=== PATIENT | male | born 1995 | race Caucasian/White ===

== ENCOUNTER 2019-06-24 11:26 | Emergency (ER) | payer OTHER ==
[~2019-06-24] VITALS: Ht 177.8 cm; Wt 81.6 kg
[2019-06-24 11:30] VITALS: BP_SYST 117; BP_SYST 120; BP_SYST 131; BP_DIAS 58; BP_DIAS 62; BP_DIAS 71
[2019-06-24 11:35] VITALS: BP 131/62
--- NOTE | 2019-06-24 11:35 | NUR ---
ED Nurse Note: PT BROUGHT IN BY [employer] AND PICKED UP FROM WORK DUE TO SZ X 1-2 MINS TONIC CLONIC AND WITNESSED BY CO WORKERS. NOTED MILD REDNESS ON TONGUE BUT NO ACTIVE BLEEDING UPON ARRIVAL. REPORTED PT BECAME ALTERED AND WAS SWEATING A LOT. NO HX OF SZ. PT CAME IN AAO X4, FOLLOWS COMMANDS WITH NON LABORED BREATHING. NOTED PT STILL SWEATING. SEIZURE PRECAUTIONS ARE IMPLEMENTED.
--- NOTE | 2019-06-24 11:40 | NUR ---
ED Nurse Note: COLLECTED BLOOD SPECIMEN THEN SENT TO LAB.
[2019-06-24] MEDS ORDERED: LORazepam Inj 2mg/ml 1ml IV ONE (11:45)
[2019-06-24] MEDS ORDERED: levETIRAcetam 500 MG in D5W 110 ML IV ONE (11:45)
[2019-06-24 12:04] LABS: BASOPHILS % (AUTO) 1.1 % (0.0-2.0); EOSINOPHILS % (AUTO) 0.8 % (0.0-3.0); HEMATOCRIT 43.5 % (42.0-52.0); HEMOGLOBIN 15.5 G/DL (14.2-18.0); LYMPHOCYTES % (AUTO) 33.2 % (20.0-45.0); MEAN CORPUSCULAR VOLUME 86 FL (80-99); MONOCYTES % (AUTO) 9.4 % (1.0-10.0); NEUTROPHILS % (AUTO) 55.4 % (45.0-75.0); PLATELET COUNT 260 K/UL (150-450); RED BLOOD COUNT 5.04 M/UL (4.70-6.10); RED CELL DISTRIBUTION WIDTH 10.7 % (11.6-14.8); WHITE BLOOD COUNT 8.9 K/UL (4.8-10.8)
[2019-06-24 12:12] LABS: ANION GAP 22 mmol/L (5-15); BLOOD UREA NITROGEN 15 mg/dL (7-18); CALCIUM 9.3 MG/DL (8.5-10.1); CARBON DIOXIDE 15 MMOL/L (21-32); CHLORIDE 102 MMOL/L (98-107); CREATININE 1.4 MG/DL (0.55-1.30); POTASSIUM 4.2 MMOL/L (3.5-5.1); SODIUM 139 MMOL/L (136-145)
--- NOTE | 2019-06-24 12:13 | NUR ---
ED Nurse Note: UNDERWEAR TRIMMER AT THE BED SIDE FOR CXR. PT TAKEN TO CT IN STABLE CONDITION.
[2019-06-24 12:26] LABS: ALANINE AMINOTRANSFERASE 35 U/L (12-78); ALBUMIN 4.4 G/DL (3.4-5.0); ALBUMIN/GLOBULIN RATIO 1.2 (1.0-2.7); ALKALINE PHOSPHATASE 83 U/L (46-116); ASPARTATE AMINO TRANSFERASE 23 U/L (15-37); BILIRUBIN,TOTAL 0.3 MG/DL (0.2-1.0); CKMB 1.4 NG/ML (0.0-3.6)
--- NOTE | 2019-06-24 12:31 | NUR ---
ED Nurse Note: PT CAME BACK FROM CT IN STABLE CONDITION.
--- NOTE | 2019-06-24 12:31 | NUR ---
ED Nurse Note: PARENTS AT THE BED SIDE.
[2019-06-24 12:40] LABS: APPEARANCE,URINE CLEAR; BILIRUBIN, URINE NEGATIVE (NEGATIVE); COLOR,URINE PALE YELLOW; GLUCOSE, URINE (UA) NEGATIVE (NEGATIVE); KETONES,URINE 1+ (NEGATIVE); LEUKOCYTE ESTERASE ,URINE NEGATIVE (NEGATIVE); NITRITE,URINE NEGATIVE (NEGATIVE); PH,URINE 7 (4.5-8.0); PROTEIN,URINE 2+ (NEGATIVE); UROBILINOGEN,URINE NORMAL MG/DL (0.0-1.0)
[2019-06-24 13:25] VITALS: BP 122/76
--- NOTE | 2019-06-24 14:35 | NUR ---
ED Nurse Note: DR ESPINO AT THE BED SIDE.
--- NOTE | 2019-06-24 14:56 | Emergency Room Report ---
History of Present Illness General Chief Complaint: Seizure Source: Patient, EMS Present Illness HPI Patient brought in by EMS for seizure which was witnessed. It was generalized tonic-clonic. The patient was at work. The last thing he remembers is that he was standing. The next he was waking up with paramedics and denying that there was any problem with that as seizure. He also denied tongue trauma however paramedics noted right tongue trauma. No bleeding. There was no head trauma. The patient is postictal and having difficulty answering questions. He denies pain at this time including his tongue. Patient had a syncopal episode a year and a half ago. This was evaluated [facility]. He reports that a CT scan was done at that time. Work-up was essentially negative. This happened at work also. See medical treatment for further history. Allergies: Coded Allergies: No Known Allergies (Unverified , 06/24/19) Patient History Limited by: medical condition Past Medical History: see triage record, psych hx - ADHD Social History: Reports: alcohol use, drug use - THC; Denies: smoking Social History Narrative production wood craftsman for condomin[employer] -lives with his brother Reviewed Nursing Documentation: PMH: Agreed; PSxH: Agreed Nursing Documentation-PMH Past Medical History: No History, Except For History Of Psychiatric Problem: Yes - depression Review of Systems All Other Systems: limited Physical Exam Vital Signs Date Time Temp Pulse Resp B/P (MAP) Pulse Ox O2 Delivery O2 Flow Rate FiO2 06/24/19 11:25 97.9 110 12 140/68 (92) 98 Room Air Sp02 EP Interpretation: reviewed, normal General Appearance: well appearing, no apparent distress, Postictal Head: normocephalic, atraumatic Eyes: bilateral eye normal inspection, bilateral eye PERRL, bilateral eye EOMI ENT: moist mucus membranes - Right lingual maceration Neck: full range of motion, supple, no bony tend Respiratory: chest non-tender, lungs clear, normal breath sounds Cardiovascular #1: regular rate, rhythm Cardiovascular #2: 2+ radial (R) Gastrointestinal: normal inspection, non tender, no mass, non-distended, decreased bowel sounds Musculoskeletal: back normal, normal range of motion Neurologic: alert, motor strength/tone normal, promotional demonstrator III-XII nml as tested, oriented - X2, sensory intact, cerebellar normal, speech normal, other - Postictal Psychiatric: mood/affect normal Skin: no rash, warm/dry Medical Decision Making Diagnostic Impression: Primary Impression: Epileptic seizure, generalized Additional Impression: Dehydration ER Course Patient presents post witnessed generalized tonic-clonic seizure. Differential includes new onset seizure, post syncopal seizure, dehydration, head trauma, electrolyte imbalance, arrhythmia amongst others. Evaluation with CT of the head, EKG, chest x-ray and labs. X-ray to exclude aspiration. Treatment with Ativan and a dose of Keppra. Patient placed on secured entrance monitor and seizure precautions undertaken. Orthostatics performed. Patient orthostatic by pulse. EKG without injury. Chest x-ray no infiltrates. CT the head normal. CMP remarkable for mildly elevated of creatinine. Tox screen positive for THC and amphetamines (patient is on prescribed Vyvanse). Patient now registers tongue pain. Tylenol administered. Patient admits to alcohol 3 times a week. He drank 1 mojito last night. He is on a decreased dose of Vyvanse at this time. 6 months ago Wellbutrin was changed to a different dose. Parents and brother present. Discussion of findings with family and patient. Discussed seizure precautions. Unable to determine if post syncopal seizure or new onset seizure activity. Regarding Wellbutrin, it would be rare to have seizures at the dose the patient is taking (150 mg twice daily). Discussed starting low-dose Keppra with patient and family. Discussed the need for alcohol abstinence at this time. Discussed the need for follow-up with neurologist. Patient improved with treatment. Patient stable for outpatient observation and treatment. DMV form completed. Laboratory Tests Test 06/24/19 11:32 06/24/19 12:10 White Blood Count 8.9 K/UL (4.8-10.8) Red Blood Count 5.04 M/UL (4.70-6.10) Hemoglobin 15.5 G/DL (14.2-18.0) Hematocrit 43.5 % (42.0-52.0) Mean Corpuscular Volume 86 FL (80-99) Mean Corpuscular Hemoglobin 30.8 PG (27.0-31.0) Mean Corpuscular Hemoglobin Concent 35.6 G/DL (32.0-36.0) Red Cell Distribution Width 10.7 % (11.6-14.8) L Platelet Count 260 K/UL (150-450) Mean Platelet Volume 7.3 FL (6.5-10.1) Neutrophils (%) (Auto) 55.4 % (45.0-75.0) Lymphocytes (%) (Auto) 33.2 % (20.0-45.0) Monocytes (%) (Auto) 9.4 % (1.0-10.0) Eosinophils (%) (Auto) 0.8 % (0.0-3.0) Basophils (%) (Auto) 1.1 % (0.0-2.0) Sodium Level 139 MMOL/L (136-145) Potassium Level 4.2 MMOL/L (3.5-5.1) Chloride Level 102 MMOL/L (98-107) Carbon Dioxide Level 15 MMOL/L (21-32) L Anion Gap 22 mmol/L (5-15) H Blood Urea Nitrogen 15 mg/dL (7-18) Creatinine 1.4 MG/DL (0.55-1.30) H Estimate Glomerular Filtration Rate > 60 mL/min (>60) Glucose Level 147 MG/DL (74-106) H Calcium Level 9.3 MG/DL (8.5-10.1) Total Bilirubin 0.3 MG/DL (0.2-1.0) Aspartate Amino Transferase (AST) 23 U/L (15-37) Alanine Aminotransferase (ALT) 35 U/L (12-78) Alkaline Phosphatase 83 U/L (46-116) Creatine Kinase MB 1.4 NG/ML (0.0-3.6) Troponin I 0.000 ng/mL (0.000-0.056) Total Protein 8.2 G/DL (6.4-8.2) Albumin 4.4 G/DL (3.4-5.0) Globulin 3.8 g/dL Albumin/Globulin Ratio 1.2 (1.0-2.7) Salicylates Level 3.1 ug/mL (2.8-20) Acetaminophen Level < 2 MCG/ML (10-30) L Serum Alcohol < 3 mg/dL Urine Color Pale yellow Urine Appearance Clear Urine pH 7 (4.5-8.0) Urine Specific [place] 1.015 (1.005-1.035) Urine Protein 2+ (NEGATIVE) H Urine Glucose (UA) Negative (NEGATIVE) Urine Ketones 1+ (NEGATIVE) H Urine Blood 2+ (NEGATIVE) H Urine Nitrite Negative (NEGATIVE) Urine Bilirubin Negative (NEGATIVE) Urine Urobilinogen Normal MG/DL (0.0-1.0) Urine Leukocyte Esterase Negative (NEGATIVE) Urine RBC 2-4 /HPF (0 - 0) H Urine WBC 2-4 /HPF (0 - 0) Urine Squamous Epithelial Cells Occasional /LPF Urine Bacteria Occasional /HPF (NONE) Urine Opiates Screen Negative (NEGATIVE) Urine Barbiturates Screen Negative (NEGATIVE) Phencyclidine (PCP) Screen Negative (NEGATIVE) Urine Amphetamines Screen Positive (NEGATIVE) H Urine Benzodiazepines Screen Negative (NEGATIVE) Urine Cocaine Screen Negative (NEGATIVE) Urine Marijuana (THC) Screen Positive (NEGATIVE) H EKG Diagnostic Results Rate: tachycardiac Rhythm Strip Diag. Results EP Interpretation: yes Rhythm: no PVC's, no ectopy, other - Sinus tachycardia Chest X-Ray Diagnostic Results Chest X-Ray Diagnostic Results : Chest X-Ray Ordered: Yes # of Views/Limited/Complete: 1 View Indication: Other EP Interpretation: Yes Interpretation: no consolidation, no effusion, no pneumothorax Impression: No acute disease Electronically Signed by: Electronically signed by Octaviano Bach MD CT/MRI/US Diagnostic Results CT/MRI/US Diagnostic Results : Imaging Test Ordered: CT head Impression No disease Last Vital Signs Date Time Temp Pulse Resp B/P (MAP) Pulse Ox O2 Delivery O2 Flow Rate FiO2 06/24/19 15:05 97.9 92 16 134/75 100 Room Air Status: improved Disposition: HOME, SELF-CARE Condition: Improved Scripts Levetiracetam (KEPPRA) 500 Mg Tablet 250 MG ORAL EVERY 12 HOURS, #60 TAB 0 Refills Prov: Octaviano Bach MD 06/24/19 Referrals: NOT CHOSEN IPA/,REFERRING (PCP) Octaviano Bach MD Jun 24, 2019 14:56
[2019-06-24] MEDS ORDERED: KEPPRA500 M4 ORAL (14:58)
[2019-06-24] MEDS ORDERED: WELLBUTRIN XL150 MG ORAL (15:02)
[2019-06-24] MEDS ORDERED: VYVANSE20 MG ORAL (15:02)
[2019-06-24 15:05] VITALS: BP 134/75
--- NOTE | 2019-06-24 15:05 | NUR ---
ER DISCHARGE NOTE: Patient is cleared to be discharged per ERMD, pt is aox4, on room air, with stable vital signs. pt was given dc and prescription instructions, pt was able to verbalize understanding, pt id band and iv site removed without complications. pt is able to ambulate with steady gait. pt took all belongings and left with his family.
--- NOTE | 2019-06-24 15:06 | Diagnostic Imaging Report ---
EXAM: XR Chest, 1 View CLINICAL HISTORY: Seizures TECHNIQUE: Frontal view of the chest. COMPARISON: No relevant prior studies available. FINDINGS: Lungs: Unremarkable. The lungs appear clear. No focal consolidation. Pleural space: Unremarkable. The costophrenic angles are sharp. No visible pneumothorax. Heart: Unremarkable. No cardiomegaly. Mediastinum: Unremarkable. Bones/joints: Unremarkable. IMPRESSION: No acute findings.
--- NOTE | 2019-06-24 15:06 | Diagnostic Imaging Report ---
EXAM: CT Head Without Intravenous Contrast CLINICAL HISTORY: Seizures TECHNIQUE: Axial computed tomography images of the head/brain without intravenous contrast. CTDI is 53.40 mGy and DLP is 1098.90 mGy-cm. One or more of the following dose reduction techniques were used: automated exposure control, adjustment of the mA and/or kV according to patient size, use of iterative reconstruction technique. Coronal reformatted images were created and reviewed. COMPARISON: No relevant prior studies available. FINDINGS: Brain: Unremarkable. No evidence of acute intracranial hemorrhage. No significant white matter disease. No edema. No mass effect or midline shift. Ventricles: Unremarkable. No ventriculomegaly. Bones/joints: Unremarkable. No depressed skull fracture. Soft tissues: Unremarkable. Sinuses: Unremarkable as visualized. No acute sinusitis. Mastoid air cells: Unremarkable as visualized. No mastoid effusion. IMPRESSION: Unremarkable noncontrast CT of the head/brain.
== END 2019-06-24 15:05 | disposition home or self-care (01) ==
LOC: EDBD 11:26 → EMR 13:52
DX: G40.909 Epilepsy, unspecified, not intractable, without status epilepticus (principal); E86.0 Dehydration; F32.9 Major depressive disorder, single episode, unspecified; R00.0 Tachycardia, unspecified
CPT/HCPCS: 36415; 70450; 71045; 80053; 80307; 81003; 82553; 84484; 85025; 93005; 96361; 96374; 96375; 99284; G0480; J1953; J7030